=== PATIENT | male | born 1995 | race Caucasian/White ===

== ENCOUNTER 2016-10-15 22:31 | Emergency (ER) | payer SELFPAY ==
[~2016-10-15] VITALS: Ht 188 cm; Wt 63.0 kg
[2016-10-15 22:44] VITALS: BP 120/81; PULSE 79; TEMP 98; O2SAT 98
--- NOTE | 2016-10-16 00:09 | PD ---
HPI Chief Complaint: Abdominal Pain Time Seen by Provider: 00:02 Travel History International Travel<30 days: No Contact w/Intl Traveler<30days: No Traveled to known affect area: No History of Present Illness HPI Patient comes in for elevation of possible inguinal hernia. Patient states he was told by a nurse 2 years ago that is what he had and this feels similar. Patient states that he caught a case of beer that was falling and when he caught it he felt a popping sensation in his right inguinal causing pain. Pain radiates to his right testicle. Patient states that he took 2 Advil prior to coming to the emergency department with minimal relief of symptoms. Denies any nausea, vomiting, loss or change in bowel or bladder, back pain, chest pain, shortness of breath, fevers, IV drug use, numbness or tingling anywhere. Pain is worse certain movement. Patient denies ever seeing a surgeon for his hernia. PFSH Past Medical History Medical History: Denies Significant Hx Social History Tobacco Use: No Substance Use: No Allergies-Medications (Allergen,Severity, Reaction): Coded Allergies: No Known Allergies (Unverified , 10/15/16) Reported Meds & Prescriptions Reported Meds & Active Scripts Active Ibuprofen 800 Mg Tab 800 Mg PO Q8H PRN Robaxin (Methocarbamol) 500 Mg Tab 500 Mg PO Q8HR PRN Review of Systems Except as stated in HPI: all other systems reviewed are Neg Physical Exam Narrative GENERAL: Well-developed, well nourished, in no acute distress, and non-ill appearing. SKIN: Warm and dry. HEAD: Atraumatic. Normocephalic. EYES: Pupils equal and round. EOMI. No scleral icterus. No injection or drainage. ENT: No nasal bleeding or discharge. Mucous membranes pink and moist. NECK: Trachea midline. Supple. No nuclear rigidity. RESPIRATORY: No accessory muscle use. No respiratory distress. GASTROINTESTINAL: Abdomen soft, nontender, nondistended. Hepatic and splenic margins not palpable. Normal bowel sounds 4. No pulsatile mass. Patient has a reducible right inguinal hernia. marketing liaisonVICTOR HUGO [place] was present during this entire exam. MUSCULOSKELETAL: No obvious deformities. No clubbing. No cyanosis. No edema. Full range of motion. NEUROLOGICAL: Awake and alert. No obvious cranial nerve deficits. Motor grossly within normal limits. Normal speech. PSYCHIATRIC: Appropriate mood and affect; insight and judgment normal. Data Data Last Documented VS Vital Signs Date Time Temp Pulse Resp B/P Pulse Ox O2 Delivery O2 Flow Rate FiO2 10/15/16 22:44 98.0 79 120/81 98 Room Air Orders Tramadol (Ultram) (10/16/16 00:15) MDM Medical Decision Making Medical Screen Exam Complete: Yes Emergency Medical Condition: Yes Differential Diagnosis Incarcerated hernia, reducible hernia, muscle strain, other Narrative Course There was no significant history of vomiting or diarrhea and no fever. The patient appeared comfortable, well hydrated and the abdominal exam was unremarkable and nontender to me. There was no evidence of an acute, surgical abdomen at this time. There was no clinical evidence to support appendicitis, cholecystitis/cholelithiasis, pancreatitis, perforation of gastric ulcer, colitis, diverticulitis, bacterial peritonitis, obstruction, volvulus, hernial incarceration or strangulation at this time. There was no evidence to support vascular pathology such as AAA, mesenteric ischemia. There was also no clinical evidence by history, exam or risk factors to suggest atypical presentation of cardiac disease such as ACS, AMI or atypical angina. No evidence to suggest genitourinary etiology as well. I suspect by history exam there may be underlying musculoskeletal involvement. Clinical picture was discussed with the patient, as well as plan of care. The patient was instructed to follow up with their physician. Abdominal pain and hernia warnings were discussed with the patient. The patient is to return if worsens, pain worsens or changes, develop fever, inability to tolerate fluids with or without vomiting, unable to establish follow up or as needed. The patient agrees with plan. Patient states he does not want any narcotics to go home with but is agreeable take one dose of Tramadol here for his pain. Patient in no obvious distress upon re-evaluation. Patient was asked if they wanted to speak to my attending, which the patient did not wish to do at this time. Any questions/concerns in reference to patient diagnosis/condition discussed and clarified prior to patient's discharge. Reinforced sheer importance of close follow up with patient's primary physician or primary care clinic in general surgery. Instructed patient to return to ED immediately, if symptoms return/worsen. Pt showed understanding of above instructions. Further instructions and recommendations were detailed in discharge paperwork. Pt ambulated without difficulty out of ED at discharge. Diagnosis Primary Impression: Inguinal hernia Qualified Code: K40.90 - Unilateral inguinal hernia without obstruction or gangrene, recurrence not specified Referrals: Robert Sosa MD Patient Instructions: General Instructions, Inguinal Hernia (ED) Additional Instructions: Follow-up with your primary care physician one to 3 days for evaluation and general surgeon next week for possible hernia repair. Take all medication as prescribed. Return to the emergency department if symptoms get worse. Med/Other Pt SpecificInfo: Prescription(s) given Scripts Ibuprofen 800 Mg [id number] Mg PO Q8H PRN (PAIN SCALE 1 TO 10) #21 TAB Ref 0 Prov:Ernesto James MD 10/16/16 Methocarbamol (Robaxin)500 Mg [id number] Mg PO Q8HR PRN (MUSCLE PAIN) #12 TAB Ref 0 Prov:Ernesto James MD 10/16/16 Disposition: 01 DISCHARGE HOME Condition: Stable Alan Ovalle Oct 16, 2016 00:09
[2016-10-16] MEDS ORDERED: IBUP800T23 PO (00:12)
[2016-10-16] MEDS ORDERED: ROBA500T PO (00:12)
[2016-10-16] MEDS ORDERED: traMADol HCL 50 MG TAB PO ONE (00:15)
== END 2016-10-16 00:33 | disposition home or self-care (01) ==
LOC: NEPB 22:31
DX: K40.90 Unilateral inguinal hernia, without obstruction or gangrene, not specified as recurrent (principal)
CPT/HCPCS: 99283